=== PATIENT | male | born 1970 | race Caucasian/White ===

== ENCOUNTER 2020-02-07 15:15 | Inpatient (IN) | payer BC ==
[~2020-02-07] VITALS: Ht 188 cm; Wt 108.0 kg
[2020-02-07 15:23] VITALS: Ht 188 cm; Wt 108.0 kg
[2020-02-07 16:26] LABS: BASOPHIL % 0.7 % (0-2); PLATELET COUNT 189 x10^3mcL (130-400); RED CELL DISTRIBUTION WIDTH 12.6 % (11.5-14.5)
[2020-02-07 16:40] LABS: CALCIUM 9.5 mg/dL (8.5-10.1); CARBON DIOXIDE 22.3 mmol/L (21-32); CHLORIDE SERUM 100 mmol/L (98-107); GFR1 > 60 mL/min; GLUCOSE SERUM 129 mg/dL (74-106); POTASSIUM SERUM 3.6 mmol/L (3.5-5.1); SODIUM SERUM 134 mmol/L (136-145)
[2020-02-07 16:44] LABS: ALKALINE PHOSPHATASE 76 U/L (46-116); ALT/SGPT 54 U/L (16-63); AMYLASE 44 U/L (25-115); AST/SGOT 26 U/L (15-37); BILIRUBIN TOTAL 1.3 mg/dL (0.20-1.00); LIPASE 67 IU/L (73-393)
[2020-02-07 17:28] LABS: microscopic required? YES; urine erythrocyte 2+ (NEGATIVE)
[2020-02-07 18:34] LABS: CHOLESTEROL/HDL RATIO 3.1
[2020-02-07 18:34] LABS: AMPHETAMINE QUAL UR NONE DETECTED (See below)
[2020-02-07 18:38] LABS: T3 TOTAL 1.23 ng/mL
[2020-02-07 18:39] LABS: FREE T4 1.01 ng/dL (0.76-1.46); FREE THYROXINE INDEX 2.5 ug/dL (1.4-4.5); T4(THYROXINE) 7.6 ug/dL (4.7-13.3)
[2020-02-07 22:04] VITALS: BP 160/93
[2020-02-08 05:24] VITALS: BP 130/81
[2020-02-08 06:41] LABS: BASOPHIL % 0.2 % (0-2); PLATELET COUNT 142 x10^3mcL (130-400); RED CELL DISTRIBUTION WIDTH 12.5 % (11.5-14.5)
[2020-02-08 06:55] LABS: CALCIUM 8.4 mg/dL (8.5-10.1); CARBON DIOXIDE 27.3 mmol/L (21-32); CHLORIDE SERUM 105 mmol/L (98-107); GFR1 > 60 mL/min; GLUCOSE SERUM 118 mg/dL (74-106); POTASSIUM SERUM 4.3 mmol/L (3.5-5.1); SODIUM SERUM 138 mmol/L (136-145)
[2020-02-08 08:43] VITALS: BP 146/96
[2020-02-08 12:00] VITALS: BP 130/85
[2020-02-08 16:22] VITALS: BP 141/92
[2020-02-08 20:48] VITALS: BP 135/65
[2020-02-08 21:48] VITALS: BP 130/88
[2020-02-09 05:39] VITALS: BP 119/83
[2020-02-09 06:37] LABS: BASOPHIL % 0.4 % (0-2); PLATELET COUNT 155 x10^3mcL (130-400); RED CELL DISTRIBUTION WIDTH 12.3 % (11.5-14.5)
[2020-02-09 07:33] LABS: CALCIUM 8.7 mg/dL (8.5-10.1); CARBON DIOXIDE 25.9 mmol/L (21-32); CHLORIDE SERUM 108 mmol/L (98-107); GFR1 > 60 mL/min; GLUCOSE SERUM 105 mg/dL (74-106); POTASSIUM SERUM 4.1 mmol/L (3.5-5.1); SODIUM SERUM 142 mmol/L (136-145)
[2020-02-09] MEDS ORDERED: CIPRO500 MG PO (10:21)
[2020-02-09] MEDS ORDERED: FLA500 PO (10:21)
[2020-02-09 12:57] VITALS: BP 119/83
[2020-02-09 13:50] VITALS: BP 125/72
== END 2020-02-09 15:22 | disposition home or self-care (01) | DRG 872 ==
LOC: ED 15:15 → DU 17:39 → MU 02-08 19:53
PROVIDERS: Emergency Medicine; ADMIT Internal Medicine; ATTEND Internal Medicine
DX: A41.9 Sepsis, unspecified organism (principal); K57.32 Diverticulitis of large intestine without perforation or abscess without bleeding; Z20.828 Contact with and (suspected) exposure to other viral communicable diseases
CPT/HCPCS: 83880; 84439; G0378; J0696; J0744; J1885; J2405; J3490; J7030; J7042; J7060